=== PATIENT | male | born 1980 | race Two or more races ===

== ENCOUNTER 2025-02-05 19:04 | Emergency (ER) | payer OTHER ==
[~2025-02-05] VITALS: Ht 185.4 cm; Wt 99.8 kg
[2025-02-05 20:55] LABS: PLATELET COUNT (AUTO) 223 K/uL (150-450); RED BLOOD CELL COUNT(AUTO) 5.34 MIL/uL (4.5-6.0); RED CELL DISTRIBUTION WIDTH 14.0 % (11.5-15.0); WHITE BLOOD COUNT (AUTO) 11.9 K/uL (4.3-11.0)
[2025-02-05 21:16] LABS: CALCIUM, SERUM 9.0 mg/dL (8.5-10.1); CREATININE 0.8 mg/dL (0.6-1.3); SODIUM SERUM 140 mmol/L (136-145); UREA NITROGEN, BLOOD 12 mg/dL (7-18)
[2025-02-05 21:18] LABS: ALCOHOL, BLOOD < 3 mg/dL (0-10)
[2025-02-05] MEDS ORDERED: LEVETIRACETAM (500MG) 500 MG/5 ML VIAL IV ONE (21:21)
[2025-02-05] MEDS ORDERED: IBUP-1490 PO (21:24)
[2025-02-05] MEDS: LEVETIRACETAM (500MG) 1,000 MG in IV NS 0.9% 90 ML IV SCH (21:25)
[2025-02-05 22:13] VITALS: BP 144/79; TEMP 97.9; O2SAT 97
== END 2025-02-05 22:44 | disposition home or self-care (01) ==
LOC: ER 19:08
DX: M25.562 Pain in left knee (principal); G40.909 Epilepsy, unspecified, not intractable, without status epilepticus; I10 Essential (primary) hypertension; Z79.899 Other long term (current) drug therapy
CPT/HCPCS: 99285; 96365; 73564; 85025; 80048; 36415; 80320; J7030 ×2; A4649; J1953 ×2; G0480